=== PATIENT | female | born 1985 | race Caucasian/White ===

== ENCOUNTER 2018-08-08 19:37 | Emergency (ER) | payer MEDICAID, OTHER ==
[~2018-08-08] VITALS: Ht 172.7 cm; Wt 59.0 kg
[2018-08-08 19:54] VITALS: BP 138/97
[2018-08-08] MEDS ORDERED: TETRACAINE HCL 0.5% OPTH(EYE) SOLN 4ML EACHEYE ONE (21:45)
== END 2018-08-08 21:59 | disposition home or self-care (01) ==
LOC: ER 19:37
DX: B30.1 Conjunctivitis due to adenovirus (principal)